=== PATIENT | male | born 1980 | race Two or more races ===

== ENCOUNTER 2016-12-28 20:47 | Emergency (ER) | payer BC ==
[2016-12-28] MEDS ORDERED: Sodium Chloride 0.9% 10 ML Syringe FLUSH PRN (21:10)
[2016-12-28] MEDS ORDERED: HYDROmorphone 0.5 MG/0.5 ML Syringe IVPUSH ONE (21:11)
--- NOTE | 2016-12-28 21:18 | EDM.PDOC ---
<Anson Gonsalves O - Last Filed: 12/28/16 22:23> ED HPI GENERAL MEDICAL PROBLEM - General Chief Complaint: Lower Extremity Injury/Pain Stated Complaint: LEFT LEG PAIN Time Seen by Provider: 12/28/16 21:02 Source of Information: Reports: Patient History Limitations: Reports: No Limitations - History of Present Illness INITIAL COMMENTS - FREE TEXT/NARRATIVE: Patient is a 36 year old male who presents to the E.D. complaining of pain, redness,and increased warmth to the left lower leg. This started 3 days ago and has progressively gotten worse. Redness has increased although the swelling has somewhat come down with elevation. Notes pain to the posterior aspect of his leg with walking. 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 He's had similar episode to his right leg approx. 10 years ago that required antibiotic injections. States after 2 injections the redness went away. He has no history of MRSA. Since onset patient has felt feverish with nothing documented. Has been taking OTC Nighttime medicine of unknown name. Denies headache, sob, cp, n/v, abdominal pain, or any additional complaints. Patient has no prior medical history and is taking no prescription medications. Left Leg Pain Score (Numeric/FACES): 7 - Related Data Allergies Allergy/AdvReac Type Severity Reaction Status Date / Time No Known Allergies Allergy Verified 12/28/16 20:57 Home Meds: Home Meds Doxycycline [Vibramycin] 200 mg PO BID #20 cap 12/29/16 [Rx] Past Medical History - Past Health History Medical/Surgical History: Denies Medical/Surgical History Social & Family History - Family History Family Medical History: Noncontributory - Tobacco Use Smoking Status *Q: Never Smoker Second Hand Smoke Exposure: Yes - Caffeine Use Caffeine Use: Reports: None - Recreational Drug Use Recreational Drug Use: No Review of Systems - Review of Systems Review Of Systems: See Below Constitutional: Denies: Chills, Fever Respiratory: Reports: No Symptoms Cardiovascular: Reports: No Symptoms GI/Abdominal: Denies: Nausea, Vomiting Musculoskeletal: Reports: Leg Pain (left lower leg), Joint Pain (left ankle). Denies: Foot Pain Skin: Reports: Erythema, Wound Neurological: Denies: Numbness, Tingling, Difficulty Walking ED EXAM, GENERAL - Physical Exam Exam: See Below Exam Limited By: No Limitations General Appearance: Alert, WD/WN, No Apparent Distress Ears: Hearing Grossly Normal Nose: Normal Inspection Throat/Mouth: Normal Voice, No Airway Compromise Neck: Normal Inspection, Supple Respiratory/Chest: No Respiratory Distress, Lungs Clear, Normal Breath Sounds, No Accessory Muscle Use Cardiovascular: Normal Peripheral Pulses, Regular Rate, Rhythm Peripheral Pulses: 2+: Radial (L), Posterior Tibial (L) Back Exam: Normal Inspection Extremities: Other (Patient has stasis dermatitis to his lower extremities bilaterally. Multiple wounds to the affected extremities bilaterally in different stages of healing. Left leg: Marked redness to the lower leg with redness extending up the medial aspect of his left thigh. Pain with palpation. Increased warmth noted. Minimal drainage from the wound sites. Pain with palpation of the posterior aspect of his left lower leg with questionable palpable cord present.) Neurological: Alert, Oriented, Normal Cognition, No Motor/Sensory Deficits Psychiatric: Normal Affect, Normal Mood Course - Vital Signs Last Recorded V/S: Last Vital Signs Temp 98.1 F 12/29/16 00:45 Pulse 74 12/29/16 00:45 Resp 18 12/29/16 00:45 BP 130/87 12/29/16 00:45 Pulse Ox 97 12/29/16 00:45 - Orders/Labs/Meds Orders: Active Orders 24 hr Category Date Time Status Peripheral IV Care [RC] . DIRECTED Care 12/28/16 21:10 Active VL Duplex Lwr Ext Veins Ltd Lt [US] Stat Exams 12/28/16 21:10 Taken Sodium Chloride 0.9% [Saline Flush] Med 12/28/16 21:10 Active 10 ml FLUSH ASDIRECTED PRN Peripheral IV Insertion Adult [OM.PC] Stat Oth 12/28/16 21:10 Ordered Medication Orders Sodium Chloride (Saline Flush) 10 ml FLUSH ASDIRECTED PRN PRN Reason: Keep Vein Open Last Admin: 12/28/16 21:38 Dose: 10 ml Labs: Laboratory Tests 12/28/16 12/28/16 12/28/16 Range/Units 21:20 21:30 21:30 WBC 11.72 H (4.23-9.07) K/mm3 RBC 4.93 (4.63-6.08) M/mm3 Hgb 13.1 L (13.7-17.5) gm/L Hct 39.9 L (40.1-51.0) % MCV 80.9 (79.0-92.2) fl MCH 26.6 (25.7-32.2) pg MCHC 32.8 (32.2-35.5) g/dl RDW Std Deviation 42.3 (35.1-43.9) fL Plt Count 166 (163-337) K/mm3 MPV 10.4 (9.4-12.3) fl Neut % (Auto) 73.0 H (34.0-67.9) % Lymph % (Auto) 15.8 L (21.8-53.1) % Leake % (Auto) 10.3 (5.3-12.2) % Eos % (Auto) 0.4 L (0.8-7.0) Baso % (Auto) 0.2 (0.1-1.2) % Neut # (Auto) 8.55 H (1.78-5.38) K/mm3 Lymph # (Auto) 1.85 (1.32-3.57) K/mm3 Leake # (Auto) 1.21 H (0.30-0.82) K/mm3 Eos # (Auto) 0.05 (0.04-0.54) K/mm3 Baso # (Auto) 0.02 (0.01-0.08) K/mm3 Sodium 134 L (136-145) mEq/L Potassium 3.3 L (3.5-5.1) mEq/L Chloride 99 (98-107) mEq/L Carbon Dioxide 27 (21-32) mEq/L Anion Gap 11.3 (5-15) BUN 18 (7-18) mg/dL Creatinine 1.3 (0.7-1.3) mg/dL Est Cr Clr Drug Dosing 81.11 mL/min Estimated GFR (MDRD) > 60 (>60) mL/min BUN/Creatinine Ratio 13.8 L (14-18) Glucose 99 (74-106) mg/dL Calcium 8.9 (8.5-10.1) mg/dL Total Bilirubin 0.8 (0.2-1.0) mg/dL AST 37 (15-37) U/L ALT 49 (16-63) U/L Alkaline Phosphatase 63 (46-116) U/L C-Reactive Protein 20.3 H* (<1.0) mg/dL Total Protein 7.6 (6.4-8.2) g/dl Albumin 3.2 L (3.4-5.0) g/dl Globulin 4.4 gm/dL Albumin/Globulin Ratio 0.7 L (1-2) MRSA (PCR) Negative Meds: Medications Generic Name Dose Route Start Last Admin Trade Name Charlee PRN Reason Stop Dose Admin Sodium Chloride 10 ml 12/28/16 21:10 12/28/16 21:38 Saline Flush FLUSH 10 ml ASDIRECTED PRN Administration Keep Vein Open Discontinued Medications Generic Name Dose Route Start Last Admin Trade Name Charlee PRN Reason Stop Dose Admin Doxycycline Hyclate 200 mg 12/28/16 23:48 12/29/16 00:06 Vibramycin PO 12/28/16 23:49 200 mg ONETIME ONE Administration Hydromorphone HCl 0.5 mg 12/28/16 21:11 12/29/16 00:18 Dilaudid IVPUSH 12/28/16 21:12 Not Given ONETIME ONE Ketorolac Tromethamine 30 mg 12/28/16 21:20 12/28/16 21:37 Toradol IVPUSH 12/28/16 21:21 30 mg ONETIME ONE Administration Trimethoprim/Sulfamethoxazole 2 tab 12/28/16 23:49 12/29/16 00:07 Septra Ds PO 12/28/16 23:50 2 tab ONETIME ONE Administration - Re-Assessments/Exams Free Text/Narrative Re-Assessment/Exam: Do believe patient has cellulitis to the left leg. He has pain with palpation of the posterior aspect of the calf concerning for DVT. He has no hx of DVT/PE. Peripheral IV ordered. Initial labs and studies include CBC, chem 14, CRP, VL duplex left lower extremity, and MRSA culture. Patient has a history of similar symptoms to the right leg proximal to 10 years ago. He has multiple sores to his leg from venous stasis. Patient refused IV dilaudid. Ordered toradol 30 mg IVP. Departure - Departure Disposition: Home, Self-Care 01 Clinical Impression: Cellulitis Qualifiers: Site of cellulitis: extremity Site of cellulitis of extremity: lower extremity Laterality: left Qualified Code(s): L03.116 - Cellulitis of left lower limb - Discharge Information Prescriptions: Doxycycline [Vibramycin] 200 mg PO BID #20 cap Instructions: Antibiotic Medicine Referrals: PCP,None [Primary Care Provider] - Forms: ED Department Discharge, ED Return to Work/School Form Additional Instructions: Off work today and tomorrow to give you time to rest and elevate the leg as much as possible to help get that swelling down, work your calf muscle as discussed which should give further benefit for reducing the leg edema more rapidly. Doxycycline antibiotic and Bactrim double strength antibiotic, 2 tabs of each twice daily for 10 days. Your symptoms of infection should gradually get much better over the next 3-5 days. Follow-up clinic if not resolving as expected. Return to ED if symptoms worsening in any way. When you do return to work do try elevate that foot and leg as much as possible when not walking or driving. <Eduard Church - Last Filed: 12/29/16 00:54> Course - Re-Assessments/Exams Free Text/Narrative Re-Assessment/Exam: 12/28/16 23:50 Have assumed care from ASTRID Albright after change of shift. I agree with his history and exam. Has had cellulitis of both distal legs left greater than right. Leading ultrasound report of his left lower extremity to rule out DVT. He carries a weight of 125 kg. We'll give antibiotics at this time. Plan to start with doxycycline 200 mg twice a day, Bactrim DS 2 tabs twice a day so we' ll give the initial doses of those meds now. 12/29/16 00:53 ultrasound of leg is negative for DVT. Discharge instructions as documented Departure - Departure Time of Disposition: 00:45 Condition: Fair
[2016-12-28] MEDS ORDERED: Ketorolac 30 MG/ML SDV IVPUSH ONE (21:20)
[2016-12-28] MEDS ORDERED: Doxycycline 100 MG Cap PO ONE (23:48)
[2016-12-28] MEDS ORDERED: Sulfamethoxazole/Trimethoprim 800-160 MG Tab PO ONE (23:49)
[2016-12-29 00:46] VITALS: BP 130/87
--- NOTE | 2016-12-29 08:01 | US ---
Left lower extremity deep venous ultrasound: Duplex and color flow imaging was obtained of the left common femoral, proximal greater saphenous, superficial femoral, popliteal, posterior tibial and peroneal veins. Right common femoral vein also was evaluated. Findings: Lymph nodes noted within the left inguinal region which are likely incidental if patient has no palpable findings. Normal phasic flow, augmentation and compression are seen. Mild soft tissue edema seen within the calf. Impression: 1. Lymph nodes within the left inguinal region which are likely incidental if patient has no palpable findings. 2. Left lower extremity subcutaneous edema. 3. No evidence of deep venous thrombosis seen within the left lower extremity or within the right common femoral vein. Diagnostic code #3 I agree with preliminary report issued by [facility] ([facility] preliminary report dictated on 12/29/16, 12:00 a.m. Central Time)
== END 2016-12-29 00:55 | disposition home or self-care (01) ==
LOC: JD.ED 20:47
DX: L03.116 Cellulitis of left lower limb (principal)
CPT/HCPCS: 36415; 80053; 85025; 86140; 87641; 93971; 96374; 99285; A9270; J1885; J7050; 99284